=== PATIENT | female | born 1945 | race Caucasian/White ===

== ENCOUNTER 2017-03-06 07:55 | Outpatient (CLI) | payer MEDICARE ==
--- NOTE | 2017-03-06 13:08 | DEXA Report ---
DEXA SCAN: 03/06/2017 CLINICAL INDICATION: Osteoporosis. TECHNIQUE: Dual energy x-ray absorptiometry (DXA) was performed on a [employer] system. Regions measured are the AP spine, femoral neck, and, if needed, forearm. COMPARISON: None. In accordance with the International Society for Clinical Densitometry (ISCD) guidelines, data from previous exams may be reanalyzed using current recommendations and techniques. This is done to allow a more accurate basis for comparison with the current study. FINDINGS: The data for the lumbar spine is as follows: REGION BMD (g/cm/cm) T-SCORE Z-SCORE L1 0.761 -3.1 -1.1 L2 0.910 -2.4 -0.5 L3 0.856 -2.0 -0.1 L4 1.030 -1.4 0.5 TOTAL 0.924 -2.1 -0.2 NOTE: All evaluable vertebrae are used for classification. The data for the hip is as follows: REGION BMD (g/cm/cm) T-SCORE Z-SCORE Neck 0.759 -2.0 -0.1 TOTAL 0.747 -2.1 -0.4 NOTE: The femoral neck or total proximal femur, whichever is lowest, is used for classification. IMPRESSION: THE WHO CLASSIFICATION BASED ON THE INTERNATIONAL REFERENCE STANDARD IS OSTEOPENIA. THE FRACTURE RISK IS INCREASED. RECOMMENDATION: Patients with diagnosis of osteoporosis or osteopenia should have regular bone mineral density assessment. For those eligible for Medicare, routine testing is allowed once every 2 years. Testing frequency can be increased for patients who have rapidly progressing disease or for those who are receiving medical therapy to restore bone mass. COMMENT: World Health Organization (WHO) definitions for osteoporosis and osteopenia: NORMAL BMD: T-score at -1.0 or higher, fracture risk is low. OSTEOPENIA BMD: T-score between -1.0 and -2.5, fracture risk is increased. OSTEOPOROSIS BMD: T-score at -2.5 or lower, fracture risk high. National Osteoporosis Foundation recommends: 1. Obtain adequate dietary calcium (at least 1200 mg per day) and vitamin D (400 -800 international units per day). 2. Participate, as appropriate, in regular weightbearing and muscle- strengthening exercise. 3. Avoid tobacco use and reduce alcohol and caffeine intake. 4. For more detailed information see the website at www.NOF.org. MTDD
== END 2017-03-06 07:56 | disposition home or self-care (01) ==
LOC: DI 07:55
PROVIDERS: ATTEND Physician Assistant
DX: Z13.820 Encounter for screening for osteoporosis (principal); M85.80 Other specified disorders of bone density and structure, unspecified site
CPT/HCPCS: 77080

== ENCOUNTER 2017-03-06 07:56 | Outpatient (CLI) | payer MEDICARE ==
--- NOTE | 2017-03-07 15:35 | Mammography Report ---
DIGITAL SCREENING MAMMOGRAM: 03/06/2017 CLINICAL INDICATION: A 71-year-old with history of late childbearing, family history of breast cancer , for screening. COMPARISON: 12/2013, 03/2007. TECHNIQUE: Routine CC and MLO projections were obtained of the breasts. Bilateral laterally exaggera subha craniocaudal views. FINDINGS: Scattered fibroglandular tissue is present within the breasts. There are no dominant shar s, suspicious microcalcifications, or secondary signs of malignancy. In comparison to the previous st udies, there are no significant changes. ASSESSMENT: NO MAMMOGRAPHIC EVIDENCE OF MALIGNANCY. NO SIGNIFICANT INTERVAL CHANGES. RECOMMENDATION: Screening mammography is recommended annually. BIRADS category 1 - negative. STANDARD QUALIFYING STATEMENTS 1. This examination was reviewed with the aid of Computed-Aided Detection (CAD). 2. A negative or benign imaging report should not delay biopsy if clinically suspicious findings are present. Consider surgical consultation if warranted. More than 5% of cancers are not identified by i maging. 3. Dense breasts may obscure an underlying neoplasm. JOB #: [id number] EXT JOB #:[id number]
== END 2017-03-06 07:57 | disposition home or self-care (01) ==
LOC: DI 07:56
PROVIDERS: ATTEND Physician Assistant
DX: Z12.31 Encounter for screening mammogram for malignant neoplasm of breast (principal)
CPT/HCPCS: 77067

== ENCOUNTER 2020-07-25 15:03 | Outpatient (CLI) | payer MEDICARE ==
--- NOTE | 2020-07-25 18:12 | DEXA Report ---
PROCEDURE: Dexa Spine and/or Hip INDICATIONS: DISORDER OF BONE TECHNIQUE: Dual energy x-ray absorptiometry (DXA) was performed on a [employer] System. Regions measur ed are the AP Spine, femoral neck, and if needed forearm. COMPARISON: Dexa 03/06/2017. FINDINGS: Lumbar Spine: Bone Mineral Density 0.970 g/cm/cm,T score -1.8 Left Hip: Bone Mineral Density 0.713 g/cm/cm,T score -2.3 Left Femoral Neck: Bone Mineral Density 0.715 g/cm/cm, T score -2.3 (T score greater or equal to -1.0: NORMAL) (T score from -1.1 to -2.4: OSTEOPENIA) (T score less than or equal to -2.5 to: OSTEOPOROSIS) Impression: Based on WHO criteria, the patient is osteopenic. Compared to the prior examination on 04/2017, the bone mineral density of the lumbar spine is significantly improved. The bone mineral den sity of the left hip is significantly decreased. Patients with diagnosis of osteoporosis or osteopenia should have regular bone mineral density assess ment. For those eligible for Medicare, routine testing is allowed once every 2 years. Testing frequ ency can be increased for patients who have rapidly progressing disease or for those who are receivin g medical therapy to restore bone mass. Reviewed by: Isaac Yang MD on 07/25/2020 6:10 PM PST Approved by: Isaac Yang MD on 07/25/2020 6:10 PM PST Station ID: [id number]
== END 2020-07-25 15:04 | disposition home or self-care (01) ==
LOC: DI 15:03
PROVIDERS: ATTEND Registered Nurse
DX: M85.89 Other specified disorders of bone density and structure, multiple sites (principal)

== ENCOUNTER 2020-08-24 09:06 | Outpatient (CLI) | payer MEDICARE ==
--- NOTE | 2020-08-25 09:54 | Mammography Report ---
BILATERAL DIGITAL SCREENING MAMMOGRAM 3D/2D: 08/24/2020 CLINICAL: Baseline exam. Routine screening. Comparison is made to exams dated: 03/06/2017 mammogram, 01/14/2014 mammogram, and 04/14/2007 mammogram - [facility]. The tissue of both breasts is heterogeneously dense. This may lower the sensitivity of mammography. No significant masses, calcifications, or other findings are seen in either breast. There has been no significant interval change. IMPRESSION: NEGATIVE There is no mammographic evidence of malignancy. A 1 year screening mammogram is recommended. This exam was interpreted at Station ID: [id number]. NOTE: For mammograms, a report in lay terms will be sent to the patient. Approximately 15% of breast malignancies will not be visualized mammographically. In the management of a palpable breast mass, a negative mammogram must not discourage biopsy of a clinically suspicious lesion. Electronically Signed By: Venancio Jain M.D. ar/penrad:08/24/2020 13:12:09 ACR BI-RADS Category 1: Negative 3341F PARENCHYMAL PATTERN: (D) - The breast(s) demonstrate(s) heterogeneously dense fibroglandular sharlene silverman. BI-RADS CATEGORY: (1) - 1 RECOMMENDATION: (ANNUAL) - Recommend routine annual screening mammography. [id number] 1 year screening LATERALITY: (B)
== END 2020-08-24 09:07 | disposition home or self-care (01) ==
LOC: DI 09:06
PROVIDERS: ATTEND Registered Nurse
DX: Z12.31 Encounter for screening mammogram for malignant neoplasm of breast (principal)

== ENCOUNTER 2023-09-12 12:34 | Outpatient (CLI) | payer MEDICARE ==
--- NOTE | 2023-09-12 18:30 | DEXA Report ---
PROCEDURE: Dexa Spine and/or Hip INDICATIONS: OSTEOPENIA TECHNIQUE: Dual energy x-ray absorptiometry (DXA) was performed on a [employer] System. Regions measur ed are the AP Spine, femoral neck, and if needed forearm. COMPARISON: July 25, 2020 FINDINGS: Lumbar Spine: Bone Mineral Density: 0.932 g/cm/cm,T score: -2.1. Since the most recent prior study, there has been a statistically significant decrease in bone mineral density by 3.9 percent. Left Femoral Neck: Bone Mineral Density: 0.681 g/cm/cm, T score: -2.6. Left Hip: Bone Mineral Density: 0.653 g/cm/cm,T score: -2.8. Since the most recent prior study, there has been a statistically significant decrease in bone mineral density by 8.4 percent. (T score greater or equal to -1.0: NORMAL) (T score from -1.1 to -2.4: OSTEOPENIA) (T score less than or equal to -2.5 to: OSTEOPOROSIS) Impression: By WHO criteria, this patient has osteoporosis. Interval statistical decrease in bone mineral density of the lumbar spine. Interval statistical decre ase in bone mineral density of the hip. Patients with diagnosis of osteoporosis or osteopenia should have regular bone mineral density assess ment. For those eligible for Medicare, routine testing is allowed once every 2 years. Testing frequ ency can be increased for patients who have rapidly progressing disease or for those who are receivin g medical therapy to restore bone mass. Reviewed by: Vernell Emery MD on 09/12/2023 6:29 PM PST Approved by: Vernell Emery MD on 09/12/2023 6:29 PM PST Station ID: [id number]
== END 2023-09-12 12:35 | disposition home or self-care (01) ==
LOC: DI 12:34
PROVIDERS: ATTEND Registered Nurse
DX: M81.0 Age-related osteoporosis without current pathological fracture (principal)

== ENCOUNTER 2023-12-25 09:12 | Outpatient (CLI) | payer MEDICARE ==
--- NOTE | 2023-12-26 00:35 | MRI Report ---
PROCEDURE: MRI brain without contrast INDICATIONS: NEUROCOGNITIVE DISORDER TECHNIQUE: Multiplanar multisequential MR images of the brain were obtained without contrast COMPARISON: None FINDINGS: CSF Spaces: Basal cisterns are patent. No extra-axial fluid collections. Ventricles are normal in size and shape. Brain: No intracranial masses or hemorrhage. Romero/white matter interface is normal. Brainstem appe ars normal. Diffusion-weighted images shows no evidence of acute infarct. Normal intravascular flow voids are present. Skull and face: Calvarium has normal marrow signal. Orbits appear normal. Sinuses: Mucosal thickening along the floors of both maxillary sinuses measures up to 5 mm. IMPRESSION: Mild atrophy and chronic ischemic change without acute infarct, hemorrhage or mass lesion. Maxillary mucosal sinus disease Reviewed by: Mateo Broderick MD on 12/25/2023 11:34 PM MARCUS Approved by: Mateo Broderick MD on 12/25/2023 11:34 PM [id number] Station ID: [id number]
== END 2023-12-25 09:13 | disposition home or self-care (01) ==
LOC: DI 09:12
PROVIDERS: ATTEND Registered Nurse
DX: G31.9 Degenerative disease of nervous system, unspecified (principal); I67.82 Cerebral ischemia; R41.9 Unspecified symptoms and signs involving cognitive functions and awareness